=== PATIENT | female | born 1960 | race Hispanic/Latino ===

== ENCOUNTER 2017-06-07 07:06 | Day surgery (SDC) | payer BC ==
[2017-05-31 11:03] VITALS: BMI 23.8
[2017-06-07 07:32] VITALS: O2SAT 98
[2017-06-07] MEDS ORDERED: Propofol 10 mg/ml Inj (20 ML) ONE (09:13)
[2017-06-07] MEDS ORDERED: Lactated Ringer's 1,000 ML IV SCH (09:30)
[2017-06-07 11:06] VITALS: BP 119/70; PULSE 47; RESP 19; TEMP 97.8
== END 2017-06-07 11:24 | disposition home or self-care (01) ==
LOC: ENDO 07:06
PROVIDERS: ATTEND Specialist
DX: Z12.11 Encounter for screening for malignant neoplasm of colon (principal); K62.1 Rectal polyp; K64.8 Other hemorrhoids
CPT/HCPCS: 45380; 88305; J2001; J2704; J7040; J7120

== ENCOUNTER 2018-08-01 15:55 | Outpatient (CLI) | payer BC | END 2018-08-01 15:56 | disposition home or self-care (01) | LOC: CARDIO 15:55 ==